=== PATIENT | female | born 1995 | race Hispanic/Latino ===

== ENCOUNTER 2016-11-21 12:47 | Emergency (ER) | payer OTHER ==
[~2016-11-21] VITALS: Ht 154.9 cm; Wt 45.4 kg
[~2016-11-21 12:47] MED LIST: FLEXERIL10 MG PO; MOTRIN 800MG T800 MG PO; MOTRIN800 MG PO; PRENATAL PLUS I1 TA1 PO; ZOFRAN4 M1 SL
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
[2016-11-21 14:46] VITALS: BP 112/69
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
== END 2016-11-21 15:10 ==
LOC: ERH 12:47
DX: S09.90XA Unspecified injury of head, initial encounter (principal); F07.81 Postconcussional syndrome; S20.212A Contusion of left front wall of thorax, initial encounter; Y04.0XXA Assault by unarmed brawl or fight, initial encounter
CPT/HCPCS: 71100-LT; 81025; J2405

== ENCOUNTER 2018-02-04 14:12 | Emergency (ER) | payer OTHER ==
[~2018-02-04] VITALS: Ht 154.9 cm; Wt 47.6 kg
[~2018-02-04 14:12] MED LIST changes: +FLAGYL500 MG PO; +KETOROLAC TROME10 M1 PO; +LO LOESTRIN FE1 EACH PO; +PROMETHAZINE HC25 M3 PO; +REGLAN10 M1 PO; +VENTOLIN HFA18 GM INH
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
[2018-02-04 17:20] LABS: ABSOLUTE BASOPHIL COUNT 0 /CUMM (0.0-0.2); ABSOLUTE EOSINOPHIL COUNT 0.1 /CUMM (0.0-0.7); ABSOLUTE GRANULOCYTE CT 4.9 /CUMM (1.4-6.5); ABSOLUTE LYMPH COUNT 1.8 /CUMM (1.2-3.4); ABSOLUTE MONOCYTE COUNT 0.4 /CUMM (0.10-0.60); BASOPHIL % 0.4 % (0.0-2.0); HEMATOCRIT 35.2 % (37-47); MEAN CORPUSCULAR HGB CONC 33.6 G/DL (33.0-37.0); MEAN CORPUSCULAR VOLUME 92.3 FL (81.0-99.0); MEAN PLATELET VOLUME 7.9 FL (7.4-10.4); PLATELET COUNT 212 /CUMM (130-400); RBC DISTRIBUTION WIDTH 14.4 % (11.5-14.5); RED BLOOD CELL CT 3.82 /CUMM (4.20-5.40); WHITE BLOOD CELL COUNT 7.3 /CUMM (4.8-10.8)
--- NOTE | 2018-02-04 18:20 | ULTRASOUND REPORT ---
EXAMINATION: US RETROPERITONEAL COMPLETE (RENAL) CLINICAL INFORMATION: Abdominal pain and back pain. Evaluate for hydronephrosis. 14 weeks of .. COMPARISON: CT images of the abdomen from 09/04/2017 TECHNIQUE: Real-time imaging of the kidneys and bladder. FINDINGS: RIGHT KIDNEY: 10.3 x 4.3 x 5.2 cm (SAG x AP x TRV). The kidney is normal in size, contour, and echogenicity. Renal cortical thickness is normal. No calculi or focal parenchymal lesions. No hydronephrosis. LEFT KIDNEY: 10.1 x 5.5 x 4.9 cm (SAG x AP x TRV). The kidney is normal in size, contour, and echogenicity. Renal cortical thickness is normal. No calculi or focal parenchymal lesions. No hydronephrosis. BLADDER: The urinary bladder is nearly completely empty (patient voided prior to the examination). Both ureteral jets are seen. No bladder calculi. IMPRESSION: The kidneys and urinary bladder are normal.
--- NOTE | 2018-02-04 18:21 | ULTRASOUND REPORT ---
EXAMINATION: US , VIABILITY CLINICAL INFORMATION: . Low back pain. COMPARISON: None TECHNIQUE: Transabdominal imaging of the pelvis was performed. FINDINGS: A single living intrauterine gestation is identified with a head circumference of 8.22 cm corresponding to 13 weeks 4 days and a biparietal diameter of 2.26 cm corresponding to 13 weeks 6 days. The abdominal circumference is 7.46 cm corresponding to 14 weeks 0 days. The femur length is 1.42 cm corresponding to 14 weeks 2 days. The average age by ultrasound is 14 weeks 0 days. This corresponds to an CATALINA of 08/05/2018. A heart rate of 157 bpm is identified. The placenta is identified posteriorly. A normal left ovary is identified measuring 2.6 x 1.2 x 2.2 cm. The right ovary is not identified. IMPRESSION: Single living intrauterine gestation with an CATALINA of 08/05/2018.
[2018-02-04 19:05] VITALS: BP 103/53
== END 2018-02-04 19:08 ==
LOC: ERH 14:12
PROVIDERS: Physician Assistant Medical
DX: O26.92 Pregnancy related conditions, unspecified, second trimester (principal); R10.30 Lower abdominal pain, unspecified; Z3A.14 14 weeks gestation of pregnancy
CPT/HCPCS: 76775; 81001